=== PATIENT | female | born 1975 | race Caucasian/White ===

== ENCOUNTER 2017-01-25 17:18 | Inpatient (IN) | payer MEDICAID ==
[~2017-01-25] VITALS: Ht 152.4 cm; Wt 50.7 kg
[2017-01-25 18:44] LABS: ADD SCAN DIFF NO
[2017-01-25 18:46] LABS: ABNORMAL IP MESSAGE 1; HEMATOCRIT 36.4 % (37.0-47.0); HEMOGLOBIN 10.8 g/dl (12.0-16.0); MEAN CORPUSCULAR HEMOGLOBIN 22.5 pg (29.0-33.0); MEAN CORPUSCULAR HGB CONC 29.7 g/dl (32.0-37.0); MEAN CORPUSCULAR VOLUME 75.8 fl (82.0-101.0); PLATELET COUNT 261 10^3/UL (140-415); RED CELL DISTRIBUTION WIDTH 24.8 % (11.5-14.5); WHITE BLOOD COUNT 12.6 10^3/ul (4.8-10.8)
--- NOTE | 2017-01-25 19:06 | ERD ---
ER Documentation Chief Complaint Date/Time DATE: 01/25/17 TIME: 19:00 Chief Complaint VAG BLEED 6 WEEKS PREG HPI This is a 41-year-old female who presents to the emergency department today complaining of vaginal bleeding that started 2 hours prior to arrival. Patient states she is a proximal he 6 weeks . Patient states that she has used 3 pads and is losing "a lot of blood" states she feels dizzy. Patient has some crampy abdominal pain. Denies any nausea or vomiting. States she is visiting her aunt here in the area and lives close to [place] in [place]. ROS All systems reviewed and are negative except as per history of present illness. PMhx/Soc Medical and Surgical Hx: pt denies Medical Hx, pt denies Surgical Hx Physical Exam Vitals Vital Signs Date Time Temp Pulse Resp B/P Pulse Ox O2 Delivery O2 Flow Rate FiO2 01/25/17 17:25 98.0 106 18 169/95 99 Physical Exam Const: Anxious Head: Atraumatic Eyes: Normal Conjunctiva ENT: Normal External Ears, Nose and Mouth. Neck: Full range of motion..~ No meningismus. Resp: Clear to auscultation bilaterally Cardio: Regular rate and rhythm, no murmurs Abd: Soft, suprapubic tenderness non distended. Normal bowel sounds. No right lower quadrant pain. No tenderness McBurney's. No left lower quadrant pain. : Vaginal exam shows active bleeding and blood pooling. Skin: No petechiae or rashes Back: No midline or flank tenderness Ext: No cyanosis, or edema Neur: Awake and alert Psych: Normal Mood and Affect Result Diagram: 01/25/17 1830 Results 24 hrs Laboratory Tests Test 01/25/17 18:30 Anisocytosis 1+ Basophils # 0.110^3/ul Basophils % 1.0% Beta HCG, Quantitative 4527.7mIU/ml Hematocrit 36.4% Hemoglobin 10.8g/dl Lymphocytes # 1.610^3/ul Lymphocytes % 13.0% Mean Corpuscular Hemoglobin 22.5pg Mean Corpuscular Hemoglobin Concent 29.7g/dl Mean Corpuscular Volume 75.8fl Mean Platelet Volume fl Microcytosis 2+ Monocytes # 0.410^3/ul Monocytes % 3.0% Neutrophils # 10.510^3/ul Neutrophils % 83.0% Platelet Count 87979^3/UL Platelet Estimate PLT APPEAR ADEQUATE Red Blood Count 4.8010^6/ul Red Cell Distribution Width 24.8% White Blood Count 12.610^3/ul Current Medications Medications (Trade) Dose Ordered Sig/Stan Route PRN Reason Start Time Stop Time Status Last Admin Dose Admin Sodium Chloride (NS) 1,000 ml @ 1,000 mls/hr Q1H ONCE IV 01/25/17 20:30 01/25/17 21:29 Ondansetron HCl (Zofran Inj) 4 mg BRIDGE ORDER PRN IV NAUSEA AND/OR VOMITING 01/25/17 21:00 01/26/17 20:59 Acetaminophen (Tylenol Tab) 650 mg ER BRIDGE PRN PO MILD PAIN/FEVER 01/25/17 21:00 01/26/17 20:59 DIAGNOSTIC IMAGING REPORT Patient: JILL CLANCY : 1975 Age: 41 Sex: F MR #: [id number] DOS: 01/25/17 1823 Ordering MD: FABIOLA GORDILLO PA-C Location: E Room/Bed: PROCEDURE: US Pelvis. CLINICAL INDICATION: Vaginal bleeding. . TECHNIQUE: Multiple sonographic images of the pelvis were obtained utilizing a transabdominal and endovaginal technique. The images were reviewed on a PACS workstation. Technical note: According to the emergency vehicle technician note, the patient became lethargic and unresponsive during the examination, this study therefore limited COMPARISON: None available FINDINGS: Uterus: Normal in size, contour and echogenicity with no evidence for myometrial masses. Size is estimated at 9.9 x 7.1 x 6.1 cm. Cervix: No abnormalities of significance are seen. Endometrium: Ovoid anechoic structure believed to reflect a gestational sac measuring 8.3 mm. A yolk sac is visualized but there is no evidence of a pole. Right ovary / adnexa: The ovary is not visualized. There is no obvious adnexal mass. Left ovary/adnexa: The ovary is not visualized. There is no obvious adnexal mass. Cul-de-sac: No evidence of free fluid. RPTAT:HJJR IMPRESSION: 1. Intrauterine gestational sac and yolk sac without a pole corresponding to an age of 5 weeks 3 days. 2. As viability is uncertain, correlation with serial serum beta HCG levels is recommended. 3. Limited exam as the patient reportedly became lethargic and unresponsive during the study. Physician Caro Date Time Electronically viewed and signed by Curtis Moses Physician on 01/25/2017 19:36 JR/ CC: FABIOLA GORDILLO PA-C Procedures/MDM This is a 41-year-old female who presents to the emergency department today complaining of vaginal bleeding that started approximately 2 hours ago. Patient indicated she is approximate 6 weeks . Patient has never been seen here in the emergency department. Given patient's complaints I did obtain a complete OB workup. Laboratory work shows an elevated white blood cell count of 12.6. Her hemoglobin is 10.8. Her platelets are within normal limits. UA is pending at time of admission Rh status O+ Beta quant hCG 4527.7 Ultrasound shows an intrauterine gestational sac and yolk sac without a pole corresponding to an age of 5 weeks and 3 days. Viability is uncertain and recommend correlation with serial beta hCG levels. There is no obvious adnexal mass. There is no evidence of free fluid. I was notified by nursing staff as well as Dr. Dill the patient appeared to have a vagal episode while on the table during her ultrasound. This happened while she was laying down. Patient did not hit her head or fall. I did do a pelvic exam on the patient which showed active bleeding. At this time the patient's partner had showed up and her partner indicated that the patient had actually been seen at 2 other hospitals this week for vaginal bleeding. This was not indicated on the patient's initial history. Per the report of the partner patient was seen at [facility] a few days ago and was told that everything was fine. He stated that at some point patient was told that she had twins on an ultrasound. He stated that when she was seen last night at a hospital in [place] for the vaginal bleeding that she was told that she lost 1 of the twins but that the other one would "be fine". Again patient did not mention this history on initial presentation. Patient symptoms at this time appear to be most consistent vaginal bleeding and patient less than 20 weeks and possible threatened . Patient did have active bleeding was complaining of feeling weak and dizzy. Dr. Dill and and I evaluated the patient on her vaginal exam and the decision was made to call the laborist, Dr. Castano who is agreed to accept the patient for further observation given the patient's active bleeding as well as her complaints of dizziness and her hemoglobin of 10.8. Patient was given IV fluids here in the emergency department. Any further documentation or orders placed will be completed by Dr. Dill or Dr. Castano. Departure Diagnosis: Primary Impression: Vaginal bleeding in patient at less than 20 weeks gestation Condition: FABIOLA Carbajal PA-C Jan 25, 2017 19:06
--- NOTE | 2017-01-25 19:36 | RADRPT ---
PROCEDURE: US Pelvis. CLINICAL INDICATION: Vaginal bleeding. . TECHNIQUE: Multiple sonographic images of the pelvis were obtained utilizing a transabdominal and endovaginal technique. The images were reviewed on a PACS workstation. Technical note: According to the senior interactive developer note, the patient became lethargic and unresponsive du ring the examination, this study therefore limited COMPARISON: None available FINDINGS: Uterus: Normal in size, contour and echogenicity with no evidence for myometrial masses. Size is est imated at 9.9 x 7.1 x 6.1 cm. Cervix: No abnormalities of significance are seen. Endometrium: Ovoid anechoic structure believed to reflect a gestational sac measuring 8.3 mm. A yol k sac is visualized but there is no evidence of a pole. Right ovary / adnexa: The ovary is not visualized. There is no obvious adnexal mass. Left ovary/adnexa: The ovary is not visualized. There is no obvious adnexal mass. Cul-de-sac: No evidence of free fluid. RPTAT:HJJR IMPRESSION: 1. Intrauterine gestational sac and yolk sac without a pole corresponding to an age of 5 weeks 3 days. 2. As viability is uncertain, correlation with serial serum beta HCG levels is recommended. 3. Limited exam as the patient reportedly became lethargic and unresponsive during the study. Physician Caro Date Time Electronically viewed and signed by Physician Caro on 01/25/2017 19:36 /
[2017-01-25 19:41] LABS: ANISOCYTOSIS 1+; BASOPHIL # 0.1 10^3/ul (0.0-0.1); LYMPHOCYTES # 1.6 10^3/ul (0.8-2.9); MICROCYTOSIS 2+; MONOCYTE # 0.4 10^3/ul (0.3-0.9); NEUTROPHIL # 10.5 10^3/ul (1.6-7.5); PLATELET ESTIMATE PLT APPEAR ADEQUATE
[2017-01-25] MEDS ORDERED: SOD CHLORIDE 0.9% 1,000 ML IV ONE (20:30)
--- NOTE | 2017-01-25 20:36 | QN ---
Documentation Comment I have seen and evaluated the patient along with the PA and/or PLYWOOD PATCHER provider. I agree with the evaluation and plan of care. Please see their documentation for full ER course and evaluation. In short: This is a 41-year-old female who after a prolonged period of time we were able to tease out the history that she has a twin gestation approximately at 12 weeks from LMP. The patient has been to 3 different emergency rooms over the past 3 days because of vaginal bleeding and spotting. Today she has vaginal bleeding and spotting. On exam: The patient has moderate amount of pooling on vaginal exam. She has a benign abdominal exam. Assessment and plan: The patient's presentation is very consistent with likely incomplete miscarriage or miscarriage in process. However, the patient had an episode on the ultrasound table where she became unresponsive. The patient seems to be very emotional and this is possibly related to vagal syncope versus emotional upset. The patient did not seem to have true syncope. She is hemodynamically stable. Her hemoglobin is 10. Unknown baseline. However, given the persistence and volume of bleeding I believe inpatient hospitalization for close observation would be appropriate. My physician's assistant wrestling coach spoke to Dr. Ruffin who will admit the patient. ERIBERTO SALES MD Jan 25, 2017 20:35
[2017-01-25] MEDS ORDERED: ONDANSETRON 4 MG INJ IV PRN (21:00)
[2017-01-25] MEDS ORDERED: ACETAMINOPHEN 325 MG TAB PO PRN (21:00)
[2017-01-26 01:22] VITALS: TEMP 98.8
[2017-01-26 02:15] VITALS: BP 145/87; PULSE 83; RESP 18
[2017-01-26] MEDS: DEXTROSE 5%-LR 1,000 ML IV SCH ×2 (04:45→11:30)
[2017-01-26 08:09] VITALS: BP 117/70; RESP 18
--- NOTE | 2017-01-26 08:35 | QN ---
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 with an early IUP admitted as has a threatened AB. Pt lives in [place] and apparently went to her doctor last week when had some light bleeding and was told all was fine after an US. She then went to [facility] when she had a little more bleeding and had an US and bloodwork. She then traveled to visit a relative up here and yesterday went to [facility] and had another US and more bloodwork and then came to [facility] and had an US showing a small gestational sac of 8mm, no pole and a BHCG of 4500. Her blood type is O positive. Hgb is 10.8 and her vital signs are stable although she became vasovagal during the US. PMHx: none. PSHx: x 2-her youngest is age 16. NKDA. Chest CTA. CV RRR, no murmurs appreciated. Abdomen soft, NT, no masses appreciated. Pelvic deferred for now. Ext NT, no edema. A: Threatened AB P: Will have nursing obtain the US and BHCG results from both [facility] and [facility] to ascertain if this is a non-viable or not. Will probably be best to proceed to a D and C, if it is not, to minimize hospital visits. OSWALDO MARTIN MD Jan 26, 2017 08:35
--- NOTE | 2017-01-26 14:08 | PD.PPDC ---
FISH FLIPPER Discharge Instruction Condition Patient Condition: Fair Diet Diet: Resume Regular Diet Activity/Restrictions Activity: Normal Activity Restrictions: No Sexual Activity Nothing in the Vagina No [place] No Tampons, douche Follow-up Follow-up with Physician: 2, Day/Days Provider Information: Copy of US and blood tests are given to pt to bring to her doctor in [place] as her doctor has her US and blood tests from last week. Cannot tell if this is a viable w/o being able to compare with prior results and cannot obtain the results . [facility] has no record of this pt. We have not received a response from [employer]. As pt is no longer bleeding feel pt should return home to her own doctor. Return to clinic for OUTDOOR ADVENTURE INSTRUCTOR Instructions: Fever greater than 101 [place] Worsening abdominal pain Excessive Vaginal Bleeding OSWALDO MARTIN MD Jan 26, 2017 14:08
--- NOTE | 2017-01-26 14:36 | DS ---
Date/Time of Note Date/Time of Note DATE: 01/26/17 TIME: 14:09 Discharge Summary Admission/Discharge Info Admit Date/Time Jan 25, 2017 at 20:32 Discharge Date/Time January 26, 2017 Final Diagnosis Threatened of a very early IUP. Patient Condition: Fair Procedures US. Hx of Present Illness Pt has had bleeding for several days and has been to her doctor, [facility] (per pt) and [place]. She has no records and we have not been able to obtain them. [facility] says they have no record of her and we have not heard from [place]. Apparently she was told she had twins and all was fine. Now her Bete HCG level is 4500 and the US shows a single sac 8mm in size. I explained to the pt that without the prior records I cannot tell her if this is a viable although she is still . She is being given a copy of the lab work and the US and may return to [place] and go to her doctor there and have that doctor determine if this is a viable . She was admitted because the ER doctor thought she was bleeding a little too much to send out but she is not bleeding anymore. Hospital Course SEE HPI. Follow-up Plan Return to [place] with our results and follow-up with her doctor as soon a possible, within 1-2 days. Pending Labs Laboratory Tests Test 01/25/17 18:30 Anisocytosis 1+ Basophils # 0.110^3/ul (0.0-0.1) Basophils % 1.0% (0.0-2.0) Beta HCG, Quantitative 4527.7mIU/ml Hematocrit 36.4% (37.0-47.0) Hemoglobin 10.8g/dl (12.0-16.0) Lymphocytes # 1.610^3/ul (0.8-2.9) Lymphocytes % 13.0% (15.0-51.0) Mean Corpuscular Hemoglobin 22.5pg (29.0-33.0) Mean Corpuscular Hemoglobin Concent 29.7g/dl (32.0-37.0) Mean Corpuscular Volume 75.8fl (82.0-101.0) Mean Platelet Volume fl (7.4-10.4) Microcytosis 2+ Monocytes # 0.410^3/ul (0.3-0.9) Monocytes % 3.0% (0.0-11.0) Neutrophils # 10.510^3/ul (1.6-7.5) Neutrophils % 83.0% (39.0-77.0) Platelet Count 18747^3/UL (140-415) Platelet Estimate PLT APPEAR ADEQUATE Red Blood Count 4.8010^6/ul (4.20-5.40) Red Cell Distribution Width 24.8% (11.5-14.5) White Blood Count 12.610^3/ul (4.8-10.8) OSWALDO MARTIN MD Jan 26, 2017 14:36
== END 2017-01-26 15:00 | disposition home or self-care (01) | DRG 778 ==
LOC: FTE 17:18 → MS2 20:32
PROVIDERS: ADMIT Obstetrics & Gynecology; ATTEND Obstetrics & Gynecology
DX: O20.0 Threatened abortion (principal); R55 Syncope and collapse; Z3A.12 12 weeks gestation of pregnancy
CPT/HCPCS: 76801; 76817; 84702; 85025; 86850; 86900; 86901; J7030; J7121

== ENCOUNTER 2019-01-10 06:55 | Emergency (ER) | payer MEDICAID ==
[~2019-01-10] VITALS: Ht 167.6 cm; Wt 50.0 kg
[2019-01-10 06:57] VITALS: Ht 167.6 cm; Wt 50.0 kg
[2019-01-10] MEDS ORDERED: SOD CHLORIDE 0.9% 1,000 ML IV STA (07:10)
[2019-01-10] MEDS ORDERED: ONDANSETRON 4 MG INJ IV STA (07:10)
[2019-01-10] MEDS ORDERED: KETOROLAC 30 MG INJ IV STA (07:10)
[2019-01-10] MEDS ORDERED: ACETAMINOPHEN 500 MG TAB PO STA (07:10)
[2019-01-10] MEDS ORDERED: ACET325T33 PO (08:23)
[2019-01-10] MEDS ORDERED: ONDA4TAB14 PO (08:23)
[2019-01-10] MEDS ORDERED: IBUP800T48 PO (08:23)
--- NOTE | 2019-01-10 08:39 | ERD ---
ER Documentation Chief Complaint Chief Complaint Complains of a headche, cough with vomiting x 2 days HPI 43-year-old female presenting with headache with a dry cough and vomiting times 2 days. Denies any abdominal pain. Has not taken medications for symptoms today. Took Advil yesterday with mild alleviation. Has diffuse body aches with nasal congestion and runny nose. Denies medical problems. NKDA. Surgical history denies. Up-to-date on vaccinations. Social history denies. ROS All systems reviewed and are negative except as per history of present illness. Medications Home Meds Active Scripts Acetaminophen* (Tylenol*) 325 Mg Tablet, 2 TAB PO Q8 PRN for PAIN AND OR ELEVATED TEMP, #20 TAB Prov:TEVIN CHANDRA PA-C 01/10/19 Ibuprofen* (Motrin*) 800 Mg Tab, 800 MG PO Q6, #30 TAB Prov:TEVIN CHANDRA PA-C 01/10/19 Ondansetron (Ondansetron Odt) 4 Mg Tab.rapdis, 4 MG PO Q6H PRN for NAUSEA AND/OR VOMITING, #10 TAB Prov:TEVIN CHANDRA PA-C 01/10/19 Allergies Allergies: Coded Allergies: No Known Allergy (Unverified , 01/26/17) PMhx/Soc History of Surgery: Yes (CEASARIAN SECTION X 2) Anesthesia Reaction: No Hx Neurological Disorder: No Hx Respiratory Disorders: No Hx Cardiac Disorders: No Hx Psychiatric Problems: No Hx Miscellaneous Medical Probl: No Hx Alcohol Use: No Hx Substance Use: No Hx Tobacco Use: No FmHx Family History: No diabetes, No coronary disease, No other Physical Exam Vitals Vital Signs Date Temp Pulse Resp B/P (MAP) Pulse Ox O2 O2 Flow FiO2 Time Delivery Rate 01/10/19 97.0 107 18 159/78 100 06:57 (105) Physical Exam GENERAL: The patient is well-appearing, well-nourished, in no acute distress HEENT: Atraumatic. Conjunctivae are pink. Pupils equal, round, and reactive to light. There is no scleral icterus. Tympanic membranes clear bilaterally. Oropharynx clear. NECK: C-spine is soft and supple. There is no meningismus. There is no cervical lymphadenopathy. CHEST: Clear to auscultation bilaterally. There are no rales, wheezes or rhonchi. HEART: Regular rate and rhythm. No murmurs, clicks, rubs or gallops. Results 24 hrs Laboratory Tests Test 01/10/19 07:15 01/10/19 07:24 Urine Color YELLOW Urine Clarity SLIGHTLY CLOUDY Urine pH 5.0 Urine Specific [place] 1.023 Urine Ketones NEGATIVE mg/dL Urine Nitrite NEGATIVE mg/dL Urine Bilirubin NEGATIVE mg/dL Urine Urobilinogen NEGATIVE mg/dL Urine Leukocyte Esterase 1+ Mode/ul Urine Microscopic RBC 3 /HPF Urine Microscopic WBC 1 /HPF Urine Squamous Epithelial Cells MODERATE /HPF Urine Mucus MANY /HPF Urine Hemoglobin NEGATIVE mg/dL Urine Glucose NEGATIVE mg/dL Urine Total Protein NEGATIVE mg/dl POC Beta HCG, Qualitative NEGATIVE Current Medications Medications Dose Sig/Stan Start Time Status Last (Trade) Ordered Route PRN Stop Time Admin Dose Reason Admin Sodium 1,000 ml @ Q1H STAT 01/10/19 DC 01/10/19 Chloride 1,000 mls/hr IV 07:10 01/10/19 07:24 08:09 Ondansetron 4 mg ONCE STAT 01/10/19 DC 01/10/19 HCl (Zofran IV 07:10 01/10/19 07:24 Inj) 07:12 Ketorolac 30 mg ONCE STAT 01/10/19 DC 01/10/19 Tromethamine IV 07:10 01/10/19 07:26 (Toradol) 07:12 1,000 mg ONCE STAT 01/10/19 DC 01/10/19 Acetaminophen PO 07:10 01/10/19 07:24 (Tylenol 07:12 Tab) Procedures/MDM ER course: 1 L normal saline given ED. Toradol, Tylenol and Zofran given. Upon reevaluation patient stated her symptoms had dramatically improved. MDM: 43-year-old female presenting with headache. Patient likely has viral syndrome. Vitals are stable and exam is non-concerning. I have low suspicion for meningitis or sepsis. I have low suspicion for pneumonia. I have low suspicion for acute abdominal emergency. Patient is discharged with stricter precautions and told to follow-up with primary care within 1-2 days for close evaluation. Patient is told if symptoms change or worsen to return immediately to the ER. All questions answered at discharge Departure Diagnosis: Primary Impression: Headache Condition: Stable Patient Instructions: Self-Care for Headaches Referrals: COMMUNITY CLINICS YOU HAVE RECEIVED A MEDICAL SCREENING EXAM AND THE RESULTS INDICATE THAT YOU DO NOT HAVE A CONDITION THAT REQUIRES URGENT TREATMENT IN THE EMERGENCY DEPARTMENT. FURTHER EVALUATION AND TREATMENT OF YOUR CONDITION CAN WAIT UNTIL YOU ARE SEEN IN YOUR DOCTORS OFFICE WITHIN THE NEXT 1-2 DAYS. IT IS YOUR RESPONSIBILITY TO MAKE AN APPOINTMENT FOR FOLOW-UP CARE. IF YOU HAVE A PRIMARY DOCTOR --you should call your primary doctor and schedule an appointment IF YOU DO NOT HAVE A PRIMARY DOCTOR YOU CAN CALL OUR PHYSICIAN REFERRAL HOTLINE AT IF YOU CAN NOT AFFORD TO SEE A PHYSICIAN YOU CAN CHOSE FROM THE FOLLOWING [facility] [address] [facility] [address] [facility] [address] [facility] [address] [facility] [address] [facility]. [address] Additional Instructions: FOLLOW UP WITH YOUR PRIMARY CARE PHYSICIAN TOMORROW.Return to this facility if you are not improving as expected. TEVIN CHANDRA PA-C Jan 10, 2019 08:39
[2019-01-10 08:42] VITALS: BP 124/67; PULSE 73; RESP 19
== END 2019-01-10 08:22 | disposition home or self-care (01) ==
LOC: FTE 06:55
DX: R51 Headache (principal); R11.10 Vomiting, unspecified
CPT/HCPCS: 81001; 81025; 96374; 96375; J1885; J2405; J7030; Z7502; Z7610